=== PATIENT | female | born 1940 | race Caucasian/White ===

== ENCOUNTER 2021-09-28 01:00 | Emergency (ER) | payer OTHER, MEDICAID ==
[~2021-09-28] VITALS: Ht 157.5 cm; Wt 81.6 kg
[2021-09-28 01:22] VITALS: BP 134/76
--- NOTE | 2021-09-28 01:30 | NUR ---
PT TO WAIT IN AMBULANCE.
[2021-09-28 02:23] LABS: BASOPHILS # (AUTO) 0.2 K/uL (0.00-0.22); BASOPHILS % (AUTO) 2.1 % (0.0-2.0); EOSINOPHILS # (AUTO) 0.1 K/uL (0-0.4); EOSINOPHILS % (AUTO) 1.4 % (0.0-4.0); HEMATOCRIT 27.9 % (36-48); HEMOGLOBIN 9.3 g/dL (12.0-16.0); LYMPHOCYTES # (AUTO) 1.2 K/uL (2.5-16.5); LYMPHOCYTES % (AUTO) 12.9 % (20.5-51.1); MEAN CORPUSCULAR HEMOGLOBIN 26 pg (27-31); MEAN CORPUSCULAR HGB CONC 33 g/dL (33-37); MEAN CORPUSCULAR VOLUME 77.7 fL (80-94); MONOCYTES # (AUTO) 0.8 K/uL (0.8-1.0); MONOCYTES % (AUTO) 8.7 % (1.7-9.3); NEUTROPHILS # (AUTO) 7.1 K/uL (1.8-7.7); NEUTROPHILS % (AUTO) 74.9 % (42.2-75.2); PLATELET COUNT (AUTO) 397 K/uL (140-450); RED BLOOD CELL COUNT(AUTO) 3.59 MIL/uL (4.20-5.40); RED CELL DISTRIBUTION WIDTH 16.4 % (11.6-13.7); WHITE BLOOD COUNT (AUTO) 9.4 K/uL (4.8-10.8)
[2021-09-28 02:52] LABS: ALBUMIN 3.5 g/dL (3.4-5.0); ANION GAP 13.6 (8-16); ASPARTATE AMINOTRANSFERASE 7 U/L (15-37); CARBON DIOXIDE 24.2 mmol/L (21-32); CHLORIDE 104 mmol/L (98-107); CREATININE 1.1 mg/dL (0.6-1.3); GLUCOSE 276 mg/dL (74-106); POTASSIUM 4.8 mmol/L (3.5-5.1); SODIUM SERUM 137 mmol/L (136-145); TOTAL BILIRUBIN 0.2 mg/dL (0.0-1.0); UREA NITROGEN, BLOOD 22 mg/dL (7-18)
--- NOTE | 2021-09-28 03:12 | NUR ---
PT TAKEN TO CHAIR A
--- NOTE | 2021-09-28 03:19 | NUR ---
RECEIVED PT IN STABLE CONDITION. O2 SAT 96% RA. NO C/O CHEST PAIN OR PALPITAIONS. PER PT "I FEEL BETTER."
[2021-09-28] MEDS ORDERED: LOSA100T1 PO (03:41)
--- NOTE | 2021-09-28 03:48 | NUR ---
PT TAKEN TO XRAY
--- NOTE | 2021-09-28 03:52 | NUR ---
PT RETURN FROM CT
--- NOTE | 2021-09-28 05:34 | NUR ---
PT SEATED UPRIGHT IN CHAIR. NO C/O PAIN AT THIS TIME. VSS. WILL CONTINUE TO MONITOR.
[2021-09-28 05:38] VITALS: BP 129/67
--- NOTE | 2021-09-28 05:54 | NUR ---
POINT OF CONTACT: [employer] [facility]- [phone]
[2021-09-28] MEDS ORDERED: AZIT250T4 PO (06:13)
--- NOTE | 2021-09-28 06:20 | NUR ---
dr. caceres reevaluating pt
--- NOTE | 2021-09-28 06:23 | NUR ---
s/w malissa, son who stated he would be available to pickle pumper pt. no eta yet, but is arranging transportation.
--- NOTE | 2021-09-28 06:46 | NUR ---
Patient discharged with v/s stable. Written and verbal after care instructions given and explained. Patient alert, oriented and verbalized understanding of instructions. Wheel Chair Assisted with by caregiver. All questions addressed prior to discharge. ID band removed. Patient advised to follow up with PMD. Rx of azithromycin and losartan given. Patient educated on indication of medication including possible reaction and side effects. Opportunity to ask questions provided and answered.
== END 2021-09-28 06:46 | disposition home or self-care (01) ==
LOC: MED 01:00 → EDBD 01:00 → MED 06:46
DX: R00.2 Palpitations (principal); J18.9 Pneumonia, unspecified organism; R06.02 Shortness of breath
CPT/HCPCS: 36415; 71045; 80053; 83880; 84484; 85025; 93005; 99285